=== PATIENT | female | born 1965 | race African-American/Black ===

== ENCOUNTER 2021-03-16 04:18 | Day surgery (SDC) | payer OTHER ==
[2021-03-15 16:36] VITALS: BMI 27.4
[2021-03-16 08:34] LABS: CALCIUM 8.5 mg/dL (8.5-10.1)
[2021-03-16 08:35] LABS: BLOOD UREA NITROGEN 48.2 mg/dL (7-18)
[2021-03-16] MEDS ORDERED: LIDOCAINE HCL 1%, 10 MG/ML (20ML VIAL) ONE ×2 (09:55→11:02)
[2021-03-16] MEDS ORDERED: HEPARIN NA (PORCINE) 5,000 UNITS/ML 1ML VIAL ONE (09:55)
[2021-03-16] MEDS ORDERED: PROPOFOL 20 ML ONE ×5 (10:21→11:11)
[2021-03-16] MEDS ORDERED: MIDAZOLAM HCL 2 MG/2 ML SINGLE DOSE VIAL ONE (10:21)
[2021-03-16] MEDS ORDERED: LIDOCAINE HCL/PF 2% SDV 5ML VIAL ONE (10:22)
[2021-03-16] MEDS ORDERED: EPHEDRINE SULFATE/0.9% NACL/PF 50 MG/10 ML SYRINGE NR ONE (10:22)
[2021-03-16] MEDS ORDERED: VANCOMYCIN 1 GM in NS (PRE-DOCKED) 1,000 MG/250 ML IVPB ONE (10:34)
[2021-03-16] MEDS ORDERED: VANCOMYCIN 1,000 MG VIAL (RESTRICTED TO ID ONLY) ONE (10:46)
[2021-03-16] MEDS ORDERED: HEPARIN NA (PORCINE) 5,000 UNITS/ML 1ML VIAL SQ ONE (10:53)
[2021-03-16] MEDS ORDERED: BUPIVACAINE HCL/PF 0.5% (5MG/ML) 10 ML VIAL ONE (10:56)
[2021-03-16] MEDS ORDERED: BUPIVACAINE HCL 50 ML ONE (11:02)
[2021-03-16] MEDS ORDERED: LIDOCAINE HCL 1%, 10 MG/ML (20ML VIAL) NR ONE (11:03)
[2021-03-16] MEDS ORDERED: BUPIVACAINE HCL/PF 0.5% (5 MG/ML) 30 ML VIAL IJ ONE ×2 (11:04)
[2021-03-16] MEDS ORDERED: POVIDONE-IODINE OINTMENT 10% - 28.4 GM TUBE ONE (12:25)
[2021-03-16] MEDS ORDERED: ONDANSETRON 4 MG/2 ML VIAL IVPUSH PRN (12:40)
[2021-03-16] MEDS ORDERED: oxyCODONE HCL 5 MG TABLET PO PRN (12:40)
[2021-03-16] MEDS ORDERED: SODIUM CHLORIDE 1,000 ML IV SCH (12:45)
[2021-03-16 15:40] VITALS: BP 148/66; PULSE 77; TEMP 98.1
== END 2021-03-16 14:40 | disposition home or self-care (01) ==
LOC: JASU-SURG 04:18
PROVIDERS: ATTEND Surgery Vascular Surgery
PROC: 05WY03Z Revision of Infusion Device in Upper Vein, Open Approach (ICD-10-PCS; principal; 2021-03-16 10:00)
DX: T82.590A Other mechanical complication of surgically created arteriovenous fistula, initial encounter (principal); T82.868A Thrombosis due to vascular prosthetic devices, implants and grafts, initial encounter; I12.0 Hypertensive chronic kidney disease with stage 5 chronic kidney disease or end stage renal disease; N18.6 End stage renal disease; Z99.2 Dependence on renal dialysis
CPT/HCPCS: 36415; 80048; 86850; 86900; 86901; 94760; J1644